=== PATIENT | female | born 1995 | race Two or more races ===

== ENCOUNTER 2017-02-19 22:51 | Emergency (ER) | payer SELFPAY ==
[~2017-02-19] VITALS: Ht 162.6 cm; Wt 59.9 kg
[2017-02-20] MEDS ORDERED: HYDROcodone-ACET 5/325MG TAB PO ONE (02:30)
[2017-02-20 03:00] VITALS: BP 120/70
[2017-02-20] MEDS ORDERED: ONDANSETRON ODT 4 MG TAB PO ONE (03:45)
== END 2017-02-20 03:16 | disposition home or self-care (01) ==
LOC: EDBD 22:51 → ER 22:54
DX: S00.93XA Contusion of unspecified part of head, initial encounter (principal); M79.1 Myalgia; M54.2 Cervicalgia; Y08.89XA Assault by other specified means, initial encounter; Y93.89 Activity, other specified; Y99.8 Other external cause status; Y92.89 Other specified places as the place of occurrence of the external cause
CPT/HCPCS: 70450; 72125; 99284; Q0162